=== PATIENT | male | born 1995 | race Caucasian/White ===

== ENCOUNTER 2017-08-22 15:05 | Emergency (ER) | payer OTHER ==
[~2017-08-22] VITALS: Ht 185.4 cm; Wt 124.2 kg
[2017-08-22] MEDS ORDERED: AUGMENTIN875 MG PO (16:01)
[2017-08-22] MEDS ORDERED: ERYTHROMYC1 APPLICAT BOTH EYES (16:01)
[2017-08-22 16:09] VITALS: BP 156/95
== END 2017-08-22 16:11 | disposition home or self-care (01) ==
LOC: EME 15:05
DX: H01.006 Unspecified blepharitis left eye, unspecified eyelid (principal); H01.003 Unspecified blepharitis right eye, unspecified eyelid
CPT/HCPCS: 99281; 99284